=== PATIENT | male | born 1950 | race Caucasian/White ===

== ENCOUNTER → 2023-09-25 09:43 | Outpatient (REF) | payer MEDICARE, SELFPAY | LOC: PAVMRI 09:43 | PROVIDERS: ATTENDING PHYSICIAN Family Medicine | DX: R22.32 Localized swelling, mass and lump, left upper limb (principal) | CPT/HCPCS: 73218 ==

== ENCOUNTER 2023-10-27 06:06 | Day surgery (SDC) | payer MEDICARE, SELFPAY ==
[2023-10-27] VITALS (8 sets, daily range): BP systolic 106–146; BP diastolic 71–83; BMI 22.4
[2023-10-27] MEDS: TYLENOL 1000 MG PO (07:07)
[2023-10-27] MEDS: NORMOSOL-R 1000 IV (07:08)
--- NOTE | 2023-10-27 08:39 | W.IMMPOSTOP ---
Surgical Immed Post Op Note
-
Primary Surgeon: Terrence
Assisting: Shahida IVEY
Pre-op Diagnosis: Left axilla soft tissue mass
Post-op Diagnosis: Same
Procedure Performed: Excision of left axilla soft tissue mass
Anesthesia Type: MAC local
Specimen / Cultures: Left axilla lipoma
Estimated Blood Loss: 15cc
Complications: None immediate
Operative Findings: Firm irregular shaped fatty mass to left axilla, tracking superiorly to the critical vessels where it seemed to be firmly tethered. The lipoma was transected and the excised portion was sent for pathology.
--- NOTE | 2023-10-27 08:42 | OR.RPT ---
Operative Report
Operative Report
Primary Surgeon: Terrence
Assisting: Shahida IVEY
Pre-op Diagnosis: Left axilla soft tissue mass
Post-op Diagnosis: Same
Procedure Performed: Excision of left axilla soft tissue mass
Anesthesia Type: MAC local
Specimen / Cultures: Left axilla lipoma
Estimated Blood Loss: 15cc
Complications: None immediate
Operative Findings: Firm irregular shaped fatty mass to left axilla, tracking superiorly to the critical vessels where it seemed to be firmly tethered. The lipoma was transected and the excised portion was sent for pathology.
Date of Surgery: 10/27/23
Indications: This 72M developed a soft tissue mass of the left axilla. Imaging demonstrated that it was not invading surrounding structures though there were septations noted. Excisional biopsy was elected. He asked to avoid surgical glue as he had
an allergic reaction previously.
PROCEDURE: After informed consent was obtained, the patient was brought to the operative suite and placed supine on the operating table. The patient was sedated, prepped and draped in the usual sterile manner and an adequate local anesthetic was
administered using lidocaine with epinephrine.
An incision waas made in the left axilla at the inferior aspect of the mass with a #15 blade. The incision was carried down to the fascia with electrocautery. The fascia was divided with electrocautery. The muscle was split with a hemostat and
opened with retractors to expose the mass. The mass was circumferentially dissected with blunt finger fracture technique. The superior pole of the mass felt tightly tethered, thus attention was turned to the inferior portion of the mass. The lipoma
was transected and the excised portion was passed off the table as specimen. The wound was irrigated with sterile saline and hemostasis was assured. The muscle was reapproximated with interrupted 3-0 vicryl interrupted sutures. The skin was closed
in 2 layers with 3-0 Vicryl deep dermal interrupted sutures and 4-0 monocryl suture in a subcuticular fashion. Steri strips were then applied. All surgical counts were reported as correct.
The patient tolerated the procedure well and was taken to the PACU in stable condition.
== END 2023-10-27 09:47 | disposition home or self-care (01) ==
LOC: SDS 06:06
PROVIDERS: ATTENDING PHYSICIAN Surgery
DX: D17.1 Benign lipomatous neoplasm of skin and subcutaneous tissue of trunk (principal); R22.2 Localized swelling, mass and lump, trunk
CPT/HCPCS: 24071; 88304